=== PATIENT | female | born 1965 | race Caucasian/White ===

== ENCOUNTER 2020-05-14 08:05 | Outpatient (REF) | payer OTHER, SELFPAY | END 2020-05-14 08:06 | disposition home or self-care (01) | LOC: HO.LAB 08:05 | PROVIDERS: Visit Provider Internal Medicine | DX: Z20.828 Contact with and (suspected) exposure to other viral communicable diseases (principal) | CPT/HCPCS: 87635 ==

== ENCOUNTER 2020-05-18 15:02 | Outpatient (REF) | payer OTHER, SELFPAY | END 2020-05-18 15:03 | disposition home or self-care (01) | LOC: HO.LAB 15:02 | PROVIDERS: PCP Internal Medicine; Visit Provider Internal Medicine | DX: Z20.828 Contact with and (suspected) exposure to other viral communicable diseases (principal) | CPT/HCPCS: 87635 ==

== ENCOUNTER 2020-06-15 10:23 | Outpatient (REF) | payer OTHER, SELFPAY ==
--- NOTE | 2020-06-15 10:30 | MM_ITS ---
EXAMINATION: MM SCREENING DIGITAL BREAST TOMOSYNTHESIS, BILATERAL CLINICAL INFORMATION: Screening. Asymptomatic. The lifetime risk of breast cancer based on the Tyrer-Cuzick Model is 7%. COMPARISON: Mammography: 06/10/2019, 04/24/2018 TECHNIQUE: Digital breast tomosynthesis is performed in both the craniocaudal and mediolateral oblique views along with computer-aided detection (CAD). Synthesized 2D images are generated from the tomosynthesis. FINDINGS: The breasts are heterogeneously dense, which may obscure small masses (ACR BI-RADS breast composition Category c). There are no significant masses, abnormal calcifications, or other abnormalities. There is biopsy clip marker overlying stable nodule posterior medial left breast. No significant changes. MM/MM tomosynthesis screening BI IMPRESSION: No mammographic evidence of malignancy. ASSESSMENT: BI-RADS 2: Benign RECOMMENDATION: Routine annual mammography screening. This patient's information was entered into a reminder system with a target due date for their next mammogram.
== END 2020-06-15 10:24 | disposition home or self-care (01) ==
LOC: HO.MAMMO 10:23
PROVIDERS: PCP Internal Medicine; Visit Provider Internal Medicine
DX: Z12.31 Encounter for screening mammogram for malignant neoplasm of breast (principal)
CPT/HCPCS: 77063; 77067

== ENCOUNTER 2020-09-09 07:42 | Outpatient (REF) | payer OTHER, SELFPAY ==
[2020-09-09 08:27] LABS: Estimated Average Glucose 103 mg/dL; Hemoglobin A1c % 5.2 %
[2020-09-09 08:47] LABS: Alanine Aminotransferase 19 U/L (0-31); Albumin Level 3.9 g/dL (3.5-5.0); Alkaline Phosphatase 33 U/L (39-117); Anion Gap 12 (12-20); Aspartate Amino Transferase 22 U/L (5-31); Bilirubin Total 0.6 mg/dL (0.0-1.0); Blood Urea Nitrogen 15 mg/dL (9-16); Calcium 8.9 mg/dL (8.4-10.2); Carbon Dioxide 25 mmol/L (22-29); Chloride 109 mmol/L (96-108); Estimated Glomerular Filt Rate > 60; Glucose Random 93 mg/dL (60-115); Potassium 4.7 mmol/L (3.3-5.1); Sodium 141 mmol/L (135-145); Total Protein 7.1 g/dL (6.5-8.0)
== END 2020-09-09 07:43 | disposition home or self-care (01) ==
LOC: HO.LAB 07:42
PROVIDERS: PCP Internal Medicine; Visit Provider Internal Medicine
DX: R63.1 Polydipsia (principal)
CPT/HCPCS: 36415; 80053; 83036

== ENCOUNTER 2021-03-20 12:10 | Emergency (ER) | payer OTHER, SELFPAY ==
[2021-03-20 13:18] VITALS: BP 173/100; PULSE 86; RESP 18; TEMP 36.6; O2SAT 98; BMI 32.2
--- NOTE | 2021-03-20 14:56 | ED_ITS ---
HPI - General Adult General Chief complaint: General Medical Stated complaint: hbp Time Seen by Provider: 03/20/21 14:56 Source: patient Mode of arrival: ambulatory Limitations: no limitations History of Present Illness MD complaint: HTN, feels unwell Onset (ago): day(s) (last few days) Severity: mild Quality: aching Relieving factors: none Exacerbating factors: none Associated symptoms: malaise and other (doesn't feel well her pressure has been up to 170s at home, took herself off her amlodipine just started it 6 days ago 5mg, just doesn't feel well) Treatments prior to arrival: none Related Data Previous Rx's Medication Instructions Recorded amlodipine 5 mg tablet 5 mg PO DAILY #90 tab 09/06/20 amlodipine 10 mg tablet 10 mg PO DAILY #30 tab 03/20/21 Allergies Allergy/AdvReac Type Severity Reaction Status Date / Time No Known Allergies Allergy Verified 03/15/21 15:25 [No Known Allergies*] Review of Systems Review of Systems: Constitutional : No Weight loss, No Fever, No Chills, pos Fatigue, No Malaise ENT/Mouth : No sore throat, No Rhinorrhea Eyes: No Eye Pain, No Swelling, No Redness Cardiovascular : No Chest Pain, No SOB, No Dyspnea on Exertion, No Orthopnea, No Edema, No Palpitations Respiratory : No Cough, No Sputum, No Wheezing Gastrointestinal : pos Nausea, No Vomiting, No Diarrhea, No Constipation, No abdominal Pain, No Hematochezia, No Melena Genitourinary : No Dysuria, No Urinary Frequency, No Hematuria, Musculoskeletal : No joint pain, No Myalgias, No Joint Swelling Skin : No Skin Lesions, No rash Neuro : No Weakness, No Numbness, pos Dizziness, pos Headache Psych : No Anxiety/Panic, No Depression Heme/Lymph: No Bruising, No Bleeding,No Lymphadenopathy Endocrine : No Polyuria, No Polydipsia All other systems reviewed and are negative PMFSH Past Medical History Attestation statement: The following information was validated with the patient. Medical History Anxiety and depression Fibroadenoma of breast GERD (gastroesophageal reflux disease) Hypertension Medial meniscus tear Obesity (BMI 30-39.9) Scoliosis Vitamin D deficiency Surgical History History of cholecystectomy History of left knee surgery History of removal of cyst Family History Family History (Updated 03/15/21 @ 15:37 by Sweta Lopez MD) Father Myocardial infarction Past heart attack Mother Hypertension Glioma Maternal Uncle Stomach cancer Sister No problems noted. Brother No problems noted. Brother No problems noted. Daughter No problems noted. Daughter No problems noted. Daughter No problems noted. Social History Social History Housing: House Alcohol intake: never Patient Tobacco Use Status: Never used Tobacco Advance Directives: No Advance Directives Information Provided: No service: No Current occupational status: unemployed Physical Exam Vital Signs: Vital Signs: Last Vital Signs Temp 97.9 F 03/20/21 13:18 Pulse 79 03/20/21 15:25 Resp 18 03/20/21 15:09 BP 167/80 H 03/20/21 15:25 Pulse Ox 99 03/20/21 15:09 Body Mass Index 32.2 Appearance: Alert. Oriented X3. No acute distress. Eyes: Pupils equal, round and reactive to light. ENT: Pharynx normal. Neck: Normal inspection. Neck supple. CVS: Normal heart rate and rhythm. Pulses normal. Respiratory: No respiratory distress. Breath sounds normal. Abdomen: Soft and non-tender. Skin: Skin warm and dry. Normal skin color. Normal skin turgor. Extremities: No lower extremity edema. No calf ttp Neuro: Oriented X 3. No motor deficit. No sensory deficit. Course Course Course Narrative: trop flat stable for DC better BP control Medical Decision Making [facility] Narrative Medical decision making narrative: 55 yo female with hx of anxiety, depression, GERD, HTN only on amlodipine 5mg. Took herself off of medications then noted she wasn't feeling well so she just restarted her 5mg amlodipine 6 days ago but notes her BP is still high and she still doesn't feel great. At this time labs, increase of amlodipine, EKG, dispo per results and findings. Lab Data Result diagrams: 03/20/21 15:32 03/20/21 15:32 Labs: Lab Results 03/20/21 03/20/21 03/20/21 Range/Units 15:32 15:32 15:32 WBC 4.6 L (4.8-10.8) X10*3/uL RBC 4.57 (4.20-5.50) X10*6/uL Hgb 12.8 (12.0-16.0) g/dl Hct 39.3 (37-47) % MCV 86.0 (80-98) fL MCH 28.0 (27.0-33.0) pg MCHC 32.6 (31.0-35.0) g/dl RDW 13.1 (11.0-16.0) % Plt Count 284 (160-400) X10*3/uL MPV 9.2 L (9.4-12.3) fL Immature Gran % (Auto) 0.2 (0.0-0.4) % Neut % (Auto) 58.2 (45-73) % Lymph % (Auto) 29.6 (20-40) % [place] % (Auto) 10.0 (2-11) % Eos % (Auto) 1.1 (0-4) % Baso % (Auto) 0.9 (0-2) % Lymph # (Auto) 1.4 (1.2-4.9) X10*3/uL [place] # (Auto) 0.5 (0.1-1.2) X10*3/uL Eos # (Auto) 0.1 (0.0-0.4) X10*3/uL Baso # (Auto) 0.0 (0.0-0.2) X10*3/uL Abs Immat Gran (auto) 0.01 (0.00-0.03) X10*3/uL Absolute Neuts (auto) 2.7 (2.0-8.3) X10*3/uL Absolute Nucleated RBC 0.000 (0.0-0.012) X10*3/uL Nucleated RBC % (auto) 0.0 (0.0-0.2) /100WBC Sodium 142 (135-145) mmol/L Potassium 4.4 (3.3-5.1) mmol/L Chloride 108 (96-108) mmol/L Carbon Dioxide 24 (22-29) mmol/L Anion Gap 14 (12-20) BUN 20 H (9-16) mg/dL Creatinine 0.78 (0.5-1.4) mg/dL Estim Creat Clear Calc 73.6 Estimated GFR > 60 Random Glucose 99 (60-115) mg/dL Calcium 9.2 (8.4-10.2) mg/dL Magnesium 2.3 (1.6-2.6) mg/dL Total Bilirubin 0.4 (0.0-1.0) mg/dL Direct Bilirubin 0.2 (0.0-0.5) mg/dL AST 20 (5-31) U/L ALT 20 (0-31) U/L Alkaline Phosphatase 34 L (39-117) U/L Troponin I High Sens (<3.5-17.0) ng/L Total Protein 7.3 (6.5-8.0) g/dL Albumin 4.2 (3.5-5.0) g/dL COVID-19 ([facility]) Negative (Negative) COVID-19 Clin Com See Note 03/20/21 Range/Units 15:32 WBC (4.8-10.8) X10*3/uL RBC (4.20-5.50) X10*6/uL Hgb (12.0-16.0) g/dl Hct (37-47) % MCV (80-98) fL MCH (27.0-33.0) pg MCHC (31.0-35.0) g/dl RDW (11.0-16.0) % Plt Count (160-400) X10*3/uL MPV (9.4-12.3) fL Immature Gran % (Auto) (0.0-0.4) % Neut % (Auto) (45-73) % Lymph % (Auto) (20-40) % [place] % (Auto) (2-11) % Eos % (Auto) (0-4) % Baso % (Auto) (0-2) % Lymph # (Auto) (1.2-4.9) X10*3/uL [place] # (Auto) (0.1-1.2) X10*3/uL Eos # (Auto) (0.0-0.4) X10*3/uL Baso # (Auto) (0.0-0.2) X10*3/uL Abs Immat Gran (auto) (0.00-0.03) X10*3/uL Absolute Neuts (auto) (2.0-8.3) X10*3/uL Absolute Nucleated RBC (0.0-0.012) X10*3/uL Nucleated RBC % (auto) (0.0-0.2) /100WBC Sodium (135-145) mmol/L Potassium (3.3-5.1) mmol/L Chloride (96-108) mmol/L Carbon Dioxide (22-29) mmol/L Anion Gap (12-20) BUN (9-16) mg/dL Creatinine (0.5-1.4) mg/dL Estim Creat Clear Calc Estimated GFR Random Glucose (60-115) mg/dL Calcium (8.4-10.2) mg/dL Magnesium (1.6-2.6) mg/dL Total Bilirubin (0.0-1.0) mg/dL Direct Bilirubin (0.0-0.5) mg/dL AST (5-31) U/L ALT (0-31) U/L Alkaline Phosphatase (39-117) U/L Troponin I High Sens 4.0 (<3.5-17.0) ng/L Total Protein (6.5-8.0) g/dL Albumin (3.5-5.0) g/dL COVID-19 ([facility]) (Negative) COVID-19 Clin Com ECG Data Attestation: I personally reviewed and interpreted this ECG as follows: Interpretation: Rate: 77 Rhythm: NSR [place]: normal Normal P waves. Normal NANCIE. Normal QRS complex. ST T wave : normal nonspecific no GÓMEZ qTC: normal prior studies: no acute ischemia The study has been interpreted contemporaneously by me. . Discharge Plan Discharge Clinical Impression: Hypertension Patient Disposition: Home, Self-Care Instructions: Chronic Hypertension (ED) Additional Instructions: return to ED for any worsening symptoms or concerns Prescriptions: New amlodipine 10 mg tablet 10 mg PO DAILY Qty: 30 RF: 0 No Action amlodipine 5 mg tablet 5 mg PO DAILY Qty: 90 RF: 2 Referrals: Po,Sweta Pinedo MD [Primary Care Provider] - 2 days (if not better) Stand Alone Forms: Work/School Release
--- NOTE | 2021-03-20 15:08 | ECG_ITS ---
Test Reason : WEAKNESS Blood Pressure : / mmHG Vent. Rate : 077 BPM Atrial Rate : 077 BPM P-R Int : 136 ms QRS Dur : 080 ms QT Int : 402 ms P-R-T Axes : 059 006 028 degrees QTc Int : 454 ms Normal sinus rhythm Possible Left atrial enlargement Borderline ECG When compared with ECG of 14-JAN-2015 21:12, No significant change was found Referred By: Kylie Stoll Electronically Signed By:ONUR CHURCH
[2021-03-20 15:09] VITALS: BP 174/95; PULSE 73; RESP 18; O2SAT 99
[2021-03-20 15:25] VITALS: BP 167/80; PULSE 79
[2021-03-20] MEDS: amLODIPine Besylate 5 MG TABLET PO (15:25)
[2021-03-20 15:38] LABS: MANUAL DIFF FLAG NO
[2021-03-20 15:44] LABS: Basophils Percent Auto 0.9 % (0-2); Eosinophils Absolute Auto 0.1 X10*3/uL (0.0-0.4); Eosinophils Percent Auto 1.1 % (0-4); Hematocrit 39.3 % (37-47); Hemoglobin 12.8 g/dl (12.0-16.0); Imm Gran Abs Auto 0.01 X10*3/uL (0.00-0.03); Imm Gran Pct Auto 0.2 % (0.0-0.4); Lymphocytes Absolute Auto 1.4 X10*3/uL (1.2-4.9); Lymphocytes Percent Auto 29.6 % (20-40); Mean Corpuscular HGB Conc 32.6 g/dl (31.0-35.0); Mean Platelet Volume 9.2 fL (9.4-12.3); Monocytes Absolute Auto 0.5 X10*3/uL (0.1-1.2); Neutrophils Absolute Auto 2.7 X10*3/uL (2.0-8.3); Neutrophils Percent Auto 58.2 % (45-73); Platelet Count 284 X10*3/uL (160-400); Red Blood Count 4.57 X10*6/uL (4.20-5.50); Red Cell Distribution Width 13.1 % (11.0-16.0); White Blood Count 4.6 X10*3/uL (4.8-10.8)
[2021-03-20 15:53] LABS: COVID-19 Test Negative (Negative); IDNOW Serial# 9DD0AD1C
[2021-03-20 16:00] VITALS: BP 144/83; PULSE 80; RESP 18; O2SAT 99
[2021-03-20 16:12] LABS: Alanine Aminotransferase 20 U/L (0-31); Albumin Level 4.2 g/dL (3.5-5.0); Alkaline Phosphatase 34 U/L (39-117); Anion Gap 14 (12-20); Aspartate Amino Transferase 20 U/L (5-31); Bilirubin Direct 0.2 mg/dL (0.0-0.5); Bilirubin Total 0.4 mg/dL (0.0-1.0); Blood Urea Nitrogen 20 mg/dL (9-16); Calcium 9.2 mg/dL (8.4-10.2); Carbon Dioxide 24 mmol/L (22-29); Chloride 108 mmol/L (96-108); Creatinine Clr Calc Pharmacy 73.6; Estimated Glomerular Filt Rate > 60; Glucose Random 99 mg/dL (60-115); Magnesium 2.3 mg/dL (1.6-2.6); Potassium 4.4 mmol/L (3.3-5.1); Sodium 142 mmol/L (135-145); Total Protein 7.3 g/dL (6.5-8.0)
== END 2021-03-20 16:33 | disposition home or self-care (01) ==
PROVIDERS: Emergency Provider Emergency Medicine; PCP Internal Medicine
DX: I10 Essential (primary) hypertension (principal); Z79.899 Other long term (current) drug therapy; Z20.822 Contact with and (suspected) exposure to COVID-19
CPT/HCPCS: 36415; 80048; 80076; 83735; 84443; 84484; 85025; 87635; 93005; 99284

== ENCOUNTER 2021-08-09 12:48 | Outpatient (REF) | payer OTHER, SELFPAY ==
--- NOTE | ~2021-08-09 | MM_ITS ---
EXAMINATION: MM SCREENING DIGITAL BREAST TOMOSYNTHESIS, BILATERAL CLINICAL INFORMATION: Screening. Asymptomatic. Remote benign left breast biopsy 2006. The lifetime risk of breast cancer based on the Tyrer-Cuzick Model is 6%. COMPARISON: Mammography: 06/15/2020, 06/10/2019, 04/26/2018 TECHNIQUE: Digital breast tomosynthesis is performed in both the craniocaudal and mediolateral oblique views along with computer-aided detection (CAD). Synthesized 2D images are generated from the tomosynthesis. FINDINGS: The breasts are heterogeneously dense, which may obscure small masses (ACR BI-RADS breast composition Category c). Parenchymal pattern is similar to prior studies. There is no developing density or architectural abnormality. There is no significant mass or abnormal calcifications. Biopsy clip marker again seen overlying nodule posterior 8:30 o'clock left breast. There are associated coarse calcifications suggesting degenerating fibroadenoma. The axilla and skin contours are unremarkable. No significant changes. MM/MM tomosynthesis screening BI IMPRESSION: No mammographic evidence of malignancy. ASSESSMENT: BI-RADS 2: Benign RECOMMENDATION: Routine annual mammography screening. This patient's information was entered into a reminder system with a target due date for their next mammogram.
== END 2021-08-09 12:49 | disposition home or self-care (01) ==
LOC: HO.MAMMO 12:48
PROVIDERS: Visit Provider Internal Medicine
DX: Z12.31 Encounter for screening mammogram for malignant neoplasm of breast (principal)
CPT/HCPCS: 77063; 77067

== ENCOUNTER 2022-03-24 07:18 | Outpatient (REF) | payer OTHER, SELFPAY ==
[2022-03-24 07:29] LABS: MANUAL DIFF FLAG NO
[2022-03-24 08:20] LABS: Basophils Percent Auto 0.9 % (0-2); Eosinophils Absolute Auto 0.2 X10*3/uL (0.0-0.4); Eosinophils Percent Auto 4.1 % (0-4); Hematocrit 39.2 % (37.0-47.0); Hemoglobin 12.6 g/dl (12.0-16.0); Lymphocytes Absolute Auto 1.5 X10*3/uL (1.2-4.9); Mean Corpuscular HGB Conc 32.1 g/dl (31.0-35.0); Mean Corpuscular Hemoglobin 27.5 pg (27.0-33.0); Mean Corpuscular Volume 85.6 fL (80.0-98.0); Mean Platelet Volume 9.3 fL (9.4-12.3); Monocytes Absolute Auto 0.5 X10*3/uL (0.1-1.2); Neutrophils Absolute Auto 2.1 x10*3/uL (2.0-8.3); Platelet Count 309 X10*3/uL (160-400); Red Blood Count 4.58 X10*6/uL (4.20-5.50); Red Cell Distribution Width 13.3 % (11.0-16.0); White Blood Count 4.4 X10*3/uL (4.8-10.8)
[2022-03-24 08:52] LABS: Alanine Aminotransferase 19 U/L (0-31); Albumin Level 3.9 g/dL (3.5-5.0); Alkaline Phosphatase 36 U/L (39-117); Anion Gap 13 (12-20); Aspartate Amino Transferase 16 U/L (5-31); Bilirubin Total 0.6 mg/dL (0.0-1.0); Blood Urea Nitrogen 18 mg/dL (9-16); Calcium 8.9 mg/dL (8.4-10.2); Carbon Dioxide 26 mmol/L (22-29); Chloride 107 mmol/L (96-108); Cholesterol 205 mg/dL; Estimated Glomerular Filt Rate > 60; Glucose Random 99 mg/dL (60-115); HDL Cholesterol 80 mg/dL; LDL Cholesterol Calculated 117 mg/dl; Potassium 4.6 mmol/L (3.3-5.1); Sodium 141 mmol/L (135-145); Total Protein 6.8 g/dL (6.5-8.0); Triglycerides 43 mg/dL
[2022-03-24 09:14] LABS: Free T4 (Free Thyroxine) 0.99 ng/dL (0.71-1.85); Thyroid Stimulating Hormone 2.05 uIU/mL (0.32-4.0); Vitamin D 25-OH Total 30.4 ng/mL (>30)
[2022-03-24 09:46] LABS: Folate 13.9 ng/mL (> or = 4.0); Vitamin B12 243 pg/mL (200-900)
== END 2022-03-24 07:19 | disposition home or self-care (01) ==
LOC: HO.LAB 07:18
PROVIDERS: PCP Internal Medicine; Visit Provider Internal Medicine
DX: E78.00 Pure hypercholesterolemia, unspecified (principal); I10 Essential (primary) hypertension; K21.9 Gastro-esophageal reflux disease without esophagitis
CPT/HCPCS: 36415; 80053; 80061; 82306; 82607; 82746; 84439; 84443; 85025

== ENCOUNTER 2022-04-17 14:37 | Outpatient (REF) | payer OTHER, SELFPAY ==
[2022-04-17 15:06] LABS: COVID-19 Test Negative (Negative); IDNOW Serial# 55D5AD1C
== END 2022-04-17 14:38 | disposition home or self-care (01) ==
LOC: HO.LAB 14:37
PROVIDERS: Visit Provider Internal Medicine
DX: Z20.822 Contact with and (suspected) exposure to COVID-19 (principal)
CPT/HCPCS: 87635; C9803

== ENCOUNTER 2022-08-11 12:48 | Outpatient (REF) | payer OTHER, SELFPAY ==
--- NOTE | ~2022-08-11 | MM_ITS ---
EXAMINATION: MM SCREENING DIGITAL BREAST TOMOSYNTHESIS, BILATERAL CLINICAL INFORMATION: Screening. Asymptomatic. The lifetime risk of breast cancer based on the Tyrer-Cuzick Model is 6%. COMPARISON: Mammography: 08/09/2021, 06/15/2020, 06/10/2019 TECHNIQUE: Digital breast tomosynthesis is performed in both the craniocaudal and mediolateral oblique views along with computer-aided detection (CAD). Synthesized 2D images are generated from the tomosynthesis. FINDINGS: The breasts are heterogeneously dense, which may obscure small masses (ACR BI-RADS breast composition Category c). There are no significant masses, abnormal calcifications, or other abnormalities. There is no significant change from prior studies. No developing density or architectural abnormality. Biopsy clip marker posterior medial left breast overlies a stable nodule with benign coarse calcifications. The axilla and skin contours are unremarkable. No significant changes. MM/MM tomosynthesis screening BI IMPRESSION: No mammographic evidence of malignancy. ASSESSMENT: BI-RADS 2: Benign RECOMMENDATION: Routine annual mammography screening. This patient's information was entered into a reminder system with a target due date for their next mammogram.
== END 2022-08-11 12:49 | disposition home or self-care (01) ==
LOC: HO.MAMMO 12:48
PROVIDERS: PCP Internal Medicine; Visit Provider Internal Medicine
DX: Z12.31 Encounter for screening mammogram for malignant neoplasm of breast (principal)
CPT/HCPCS: 77063; 77067

== ENCOUNTER → 2022-10-16 12:59 | Outpatient (REF) | payer OTHER, SELFPAY | LOC: HO.SL 12:59 | PROVIDERS: PCP Internal Medicine; Visit Provider Internal Medicine | DX: G47.10 Hypersomnia, unspecified (principal); R06.83 Snoring | CPT/HCPCS: 95806 ==

== ENCOUNTER 2023-03-27 13:28 | Outpatient (AMB) | payer OTHER, SELFPAY ==
[2023-03-27 13:34] VITALS: BP 130/76; PULSE 86; O2SAT 99
--- NOTE | 2023-03-27 13:34 | A.OFFPC_ITS ---
Vital Signs 03/27/23 13:34 Height 5 ft BP 130/76 Blood Pressure Location Lt brachial Position Sitting Pulse 86 Pulse Source Pulse Oximeter Pulse Oximetry (%) 99 Oxygen Delivery Method Room Air Intake Visit Reasons: PHYSICAL Allergies No Known Allergies [No Known Allergies*] Allergy (Verified 03/27/23 13:35) Medication List - Last Reconciled 03/27/23 by Sweta Lopez MD amlodipine 10 mg PO DAILY 90 days cyanocobalamin (vitamin B-12) 1,000 mcg PO DAILY ibuprofen 200 mg PO Q6H PRN Tobacco use date assessed: 09/22/22 Dental Screening Dental Screen Date: 03/27/23 Did you have a dental visit in the last 12 months?: Yes Did you have a dental problem in the last 6 months where you did not have access to dental care?: No Was dental information given to patient?: Patient has dentist HPI PHYSICAL HPI Details 57-year-old obese female with hypertension GERD vitamin B12 deficiency last seen in August 2022 and was advised to get sleep study for hypersomnia. Patient is here for physical exam. Mammogram is up-to-date colonoscopy do but patient has declined for couple of years.. Sleep study done September 2022 revealed negative sleep apnea. biometric screening quesytionaire filled. Patient is concerned about difficulty in concentration and was offered referral to neuropsychiatry for evaluation but would like to hold off. Colonoscopy still refused [facility] Medical History Fibroadenoma of breast GERD (gastroesophageal reflux disease) Hypertension Medial meniscus tear Obesity (BMI 30-39.9) Scoliosis Vitamin D deficiency Surgical History History of cholecystectomy History of left knee surgery History of removal of cyst Family History Father Myocardial infarction Past heart attack Mother Hypertension Glioma Maternal Uncle Stomach cancer Sister No problems noted. Brother No problems noted. Brother No problems noted. Daughter No problems noted. Daughter No problems noted. Daughter No problems noted. Social History Housing: House Alcohol intake: never Patient Tobacco Use Status: Never used Tobacco e-Cigarette/Vaping Use: Never Used Second Hand Smoke Exposure: No service: No Current occupational status: unemployed Cognitive needs: No Hearing needs: No Vision needs: Yes Questionnaire PHQ-9 Over the last 2 weeks, how often have you been bothered by any of the following problems? 1. Little interest or pleasure in doing things: several days 2. Feeling down, depressed, or hopeless: several days 3. Trouble falling or staying asleep, or sleeping too much: not at all 4. Feeling tired or having little energy: not at all 5. Poor appetite or overeating: not at all 6. Feeling bad about yourself - or that you are a failure or have let yourself or your family down: not at all 7. Trouble concentrating on things, such as reading the newspaper or watching television: not at all 8. Moving or speaking so slowly that other people could have noticed. Or the opposite - being so fidgety or restless that you have been moving around a lot more than usual: not at all 9. Thoughts that you would be better off or of hurting yourself in some way: not at all Total score: 2 Depression Screening Interpretation: Positive Source: Developed by Drs. Jareth Morgan, Jerrell Calabrese and colleagues, with an educational aj from [employer] Thrive Questionnaire Date Thrive assessed: 09/22/22 AUDIT C Alcohol Use Questionnaire (AUDIT-C) 1. How often do you have a drink containing alcohol?: Never 2. How many drinks containing alcohol do you have on a typical day when you are drinking?: 1 or 2 3. How often do you have six or more drinks on one occasion?: Never Total Score: 0 SAMEER-7 AMB Questionnaire SAMEER-7 Date SAMEER - 7 assessed: 09/22/22 Source: Developed by Drs. Jareth Morgan, Jerrell Calabrese and colleagues, with an educational aj from [employer] Review of Systems Const Denies poor appetite and Denies weakness Eyes Denies no additional complaints ENT Reports Normal hearing present, Denies dizziness, Denies nasal congestion, Denies tinnitus and Denies sore throat Card Denies chest pain, Denies syncope, Denies rapid heart rate and Denies dyspnea Resp Denies cough and Denies dyspnea GI Denies change in stool character, Reports constipation, Denies diarrhea, Denies nausea and Denies vomiting Denies urinary frequency, Denies difficulty voiding and Denies dysuria Neuro Reports Normal hearing present, Denies confusion, Denies dizziness, Denies syncope and Denies weakness Psych Denies confusion Physical exam (Primary Care) Vital Signs: Last Vital Signs Pulse 86 03/27/23 13:34 BP 130/76 03/27/23 13:34 Pulse Ox 99 03/27/23 13:34 Oxygen Delivery Method Room Air 03/27/23 13:34 Tobacco/Smoking Status: Tobacco use Status Tobacco use date assessed 09/22/22 03/27/23 13:41 Patient Tobacco Use Status Never used Tobacco 03/27/23 13:41 e-Cigarette/Vaping Use Never Used 03/27/23 13:41 PHQ-9: PHQ-9 Score PHQ-9: Total score 2 03/27/23 13:41 Depression Screening Interpretation: Positive Thrive Assessment: Date of Thrive Assessment Date Thrive assessed 09/22/22 03/27/23 13:41 Const General: No confusion Orientation/consciousness: No confusion HENMT Head: Yes normocephalic Ears: external ears normal and TM's normal bilaterally Face and sinus: Yes normal facial exam Mouth: moist mucous membranes Throat: Yes tonsils normal Eyes Conjunctivae: conjunctivae normal Pupils: Equal, round and reactive pupils present and Pupil accommodation reflex normal Direct Ophthalmoscopy: normal light reflex Neck Neck: No lymphadenopathy Thyroid: Thyroid normal Chest Chest palpation & inspection: normal inspection of the chest Resp Effort & Inspection: normal respiratory effort and no audible wheezes Auscultation: clear to auscultation bilaterally, no crackles, no wheezes and lung sounds not diminished Cardio Rate: regular rate Rhythm: regular rhythm Peripheral pulses: radial pulses present and dorsalis pedis present GI Palpation (GI): no masses Auscultation: normal bowel sounds and normoactive bowel sounds Rectal Exam - Female: deferred Skin General skin exam: no rashes or lesions noted Rashes: no rashes Neuro General: No confusion Cranial nerves: Yes Equal, round and reactive pupils present and Yes Normal hearing present Cognition (Neuro): normal cognition Gait exam (Neuro): Normal gait present Motor exam (neuro): 5/5 motor strength present throughout Deep tendon reflexes (DTR's): Right brachioradialis reflex intensity grade: 2+, Left brachioradialis reflex intensity grade: 2+, Right patellar reflex intensity grade: 2+ and Left patellar reflex intensity grade: 2+ Extrem General: No edema Assessment and Plan Assessment & Plan (1) Annual physical exam: Code(s): Z00.00 - Encounter for general adult medical examination without abnormal findings (2) Hypertension: Code(s): I10 - Essential (primary) hypertension Qualifiers: Hypertension type: primary hypertension Qualified Code(s): I10 - Essential (primary) hypertension Plan: Continue with blood pressure medication. Decrease salt intake and exercise patient is on amlodipine 10 mg once a day (3) GERD (gastroesophageal reflux disease): Code(s): K21.9 - Gastro-esophageal reflux disease without esophagitis Qualifiers: Esophagitis presence: without esophagitis Qualified Code(s): K21.9 - Gastro-esophageal reflux disease without esophagitis Plan: Avoid the foods that causes that usually spicy foods, tomato products, juices, coffee, soda and foods that your sensitive to. After eating do not lie down, allow 3-4 hours before in lie down. And keep the head of bed above 30 degrees to avoid the acid from going up. (4) Obesity (BMI 30-39.9): Code(s): E66.9 - Obesity, unspecified Plan: Diet and exercise (5) Generalized anxiety disorder: Code(s): F41.1 - Generalized anxiety disorder Plan: Stable Orders: Orders Vitamin B12 and Folate Today I10 - Essential (primary) hypertension Comprehensive Met. Panel Today I10 - Essential (primary) hypertension Lipid Panel Today E78.00 - Pure hypercholesterolemia, unspecified, I10 - Essential (primary) hypertension Free T4 (Free Thyroxine) Today I10 - Essential (primary) hypertension Thyroid Stimulating Hormone Today I10 - Essential (primary) hypertension Vitamin D 25-OH Total Today I10 - Essential (primary) hypertension Complete Blood Count Auto Diff Today I10 - Essential (primary) hypertension Coding Level of Care Code Est Pt Prev Care 40-64y(70075) Diagnoses Annual physical exam Z00.00 Hypertension I10 Hypertension type: primary hypertension GERD (gastroesophageal reflux disease) K21.9 Esophagitis presence: without esophagitis Obesity (BMI 30-39.9) E66.9 Generalized anxiety disorder F41.1
== END 2023-03-27 14:09 | disposition home or self-care (01) ==
PROVIDERS: PCP Internal Medicine; Visit Provider Internal Medicine
DX: Z00.00 Encounter for general adult medical examination without abnormal findings (principal); I10 Essential (primary) hypertension; K21.9 Gastro-esophageal reflux disease without esophagitis; F41.1 Generalized anxiety disorder
CPT/HCPCS: 99396

== ENCOUNTER 2023-04-04 08:11 | Outpatient (REF) | payer OTHER, SELFPAY ==
[2023-04-04 08:35] LABS: MANUAL DIFF FLAG NO
[2023-04-04 08:56] LABS: Basophils Percent Auto 0.8 % (0-2); Eosinophils Absolute Auto 0.2 X10*3/uL (0.0-0.4); Eosinophils Percent Auto 3.6 % (0-4); Hemoglobin 12.8 g/dl (12.0-16.0); Imm Gran Abs Auto 0.01 X10*3/uL (0.00-0.03); Imm Gran Pct Auto 0.2 % (0.0-0.4); Lymphocytes Absolute Auto 1.8 X10*3/uL (1.2-4.9); Mean Corpuscular HGB Conc 32.8 g/dl (31.0-35.0); Mean Corpuscular Hemoglobin 28.4 pg (27.0-33.0); Mean Corpuscular Volume 86.5 fL (80.0-98.0); Mean Platelet Volume 9.2 fL (9.4-12.3); Monocytes Absolute Auto 0.5 X10*3/uL (0.1-1.2); Monocytes Percent Auto 10.8 % (2-11); Neutrophils Absolute Auto 2.4 x10*3/uL (2.0-8.3); Neutrophils Percent Auto 48.6 % (45-73); Platelet Count 292 X10*3/uL (160-400); Red Blood Count 4.51 X10*6/uL (4.20-5.50); Red Cell Distribution Width 13.6 % (11.0-16.0)
[2023-04-04 09:44] LABS: Alanine Aminotransferase 14 U/L (0-31); Albumin Level 3.8 g/dL (3.5-5.0); Alkaline Phosphatase 35 U/L (39-117); Anion Gap 10 (12-20); Aspartate Amino Transferase 17 U/L (5-31); Bilirubin Total 0.6 mg/dL (0.0-1.0); Blood Urea Nitrogen 19 mg/dL (9-16); Calcium 9.4 mg/dL (8.4-10.2); Carbon Dioxide 28 mmol/L (22-29); Chloride 110 mmol/L (96-108); Cholesterol 193 mg/dL (<200); Estimated Glomerular Filt Rate > 60; Glucose Random 92 mg/dL (60-115); HDL Cholesterol 82 mg/dL (>40); LDL Cholesterol Calculated 103 mg/dL (<100); Potassium 4.7 mmol/L (3.3-5.1); Sodium 143 mmol/L (135-145); Total Protein 6.8 g/dL (6.5-8.0); Triglycerides 43 mg/dL (<150)
[2023-04-04 10:05] LABS: Folate 10.7 ng/mL (> or = 4.0); Vitamin B12 348 pg/mL (200-900)
[2023-04-04 10:10] LABS: Free T4 (Free Thyroxine) 0.89 ng/dL (0.71-1.85); Thyroid Stimulating Hormone 1.56 uIU/mL (0.32-4.0); Vitamin D 25-OH Total 34.2 ng/mL (>30)
== END 2023-04-04 08:12 | disposition home or self-care (01) ==
LOC: HO.LAB 08:11
PROVIDERS: PCP Internal Medicine; Visit Provider Internal Medicine
DX: E78.00 Pure hypercholesterolemia, unspecified (principal); I10 Essential (primary) hypertension; E55.9 Vitamin D deficiency, unspecified
CPT/HCPCS: 36415; 80053; 80061; 82306; 82607; 82746; 84439; 84443; 85025

== ENCOUNTER 2023-08-17 12:39 | Outpatient (REF) | payer OTHER, SELFPAY ==
--- NOTE | ~2023-08-17 | MM_ITS ---
EXAMINATION: MM SCREENING DIGITAL BREAST TOMOSYNTHESIS, BILATERAL CLINICAL INFORMATION: Screening. Asymptomatic. COMPARISON: Mammography: This study is compared with prior exams dating back to 2018. TECHNIQUE: Digital breast tomosynthesis is performed in both the craniocaudal and mediolateral oblique views along with computer-aided detection (CAD). Synthesized 2D images are generated from the tomosynthesis. FINDINGS: There are scattered areas of fibroglandular density (ACR BI-RADS breast composition Category b). There are no significant masses, abnormal calcifications, or other abnormalities. In the medial aspect of the left breast, there is a low density, oval, well-circumscribed mass containing few coarse calcifications and a biopsy tissue marker. This finding is players club representative of a previously biopsied, involuting fibroadenoma. This is a benign entity. MM/MM tomosynthesis screening BI IMPRESSION: No mammographic evidence of malignancy. ASSESSMENT: BI-RADS BI-RADS 2 - Benign Findings RECOMMENDATION: Routine annual mammography screening. 1 year F/U This examination should not preclude the clinical evaluation of a suspicious palpable abnormality. This patient's information was entered into a reminder system with a target due date for their next mammogram.
== END 2023-08-17 12:40 | disposition home or self-care (01) ==
LOC: HO.MAMMO 12:39
PROVIDERS: PCP Internal Medicine; Visit Provider Internal Medicine
DX: Z12.31 Encounter for screening mammogram for malignant neoplasm of breast (principal)
CPT/HCPCS: 77063; 77067

== ENCOUNTER → 2023-08-17 13:00 | Outpatient (BNV) | payer OTHER, SELFPAY | PROVIDERS: PCP Internal Medicine; Visit Provider Radiology Diagnostic Radiology | DX: Z12.31 Encounter for screening mammogram for malignant neoplasm of breast (principal) | CPT/HCPCS: 77063; 77067 ==

== ENCOUNTER 2024-04-03 13:26 | Outpatient (AMB) | payer OTHER, SELFPAY ==
[2024-04-03 13:28] VITALS: BP 118/72; PULSE 80; O2SAT 97; BMI 32.4
--- NOTE | 2024-04-03 13:28 | MHC.PC.OV ---
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 Accompanied by: Self / Same As Patient Allergies No Known Allergies [No Known Allergies*] Allergy (Verified 04/03/24 13:28) Medication List - Last Reconciled 04/03/24 by Sweta Lopez MD amlodipine 10 mg PO DAILY 90 days cyanocobalamin (vitamin B-12) 1,000 mcg PO DAILY escitalopram oxalate 5 mg PO DAILY ibuprofen 200 mg PO Q6H PRN Tobacco use date assessed: 04/03/24 Dental Screening Dental Screen Date: 04/03/24 Did you have a dental visit in the last 12 months?: Yes Did you have a dental problem in the last 6 months where you did not have access to dental care?: No Was dental information given to patient?: Patient has dentist HPI Annual Exam HPI Details 58-year-old obese female with hypertension GERD generalized anxiety disorder last seen 1 year ago patient is up-to-date with mammogram and do due for colonoscopy but patient declined. amadou and leaked water and so living in another place [facility] Medical History Fibroadenoma of breast GERD (gastroesophageal reflux disease) Hypertension Medial meniscus tear Obesity (BMI 30-39.9) Scoliosis Vitamin D deficiency Surgical History History of cholecystectomy History of left knee surgery History of removal of cyst Family History Father Myocardial infarction Past heart attack Mother Hypertension Glioma Maternal Uncle Stomach cancer Sister No problems noted. Brother No problems noted. Brother No problems noted. Daughter No problems noted. Daughter No problems noted. Daughter No problems noted. Social History Housing: House Alcohol intake: never Patient Tobacco Use Status: Never used Tobacco Tobacco use type: Cigarette e-Cigarette/Vaping Use: Never Used Second Hand Smoke Exposure: No service: No Current occupational status: unemployed Cognitive needs: No Hearing needs: No Vision needs: Yes Questionnaire PHQ-9 Over the last 2 weeks, how often have you been bothered by any of the following problems? 1. Little interest or pleasure in doing things: not at all 2. Feeling down, depressed, or hopeless: several days 3. Trouble falling or staying asleep, or sleeping too much: several days 4. Feeling tired or having little energy: not at all 5. Poor appetite or overeating: not at all 6. Feeling bad about yourself - or that you are a failure or have let yourself or your family down: not at all 7. Trouble concentrating on things, such as reading the newspaper or watching television: several days 8. Moving or speaking so slowly that other people could have noticed. Or the opposite - being so fidgety or restless that you have been moving around a lot more than usual: not at all 9. Thoughts that you would be better off or of hurting yourself in some way: not at all Total score: 3 Source: Developed by Drs. Jareth Morgan, Bhavna Guzmán, Jerrell Cornejo and colleagues, with an educational aj from [employer]. Thrive Questionnaire Date Thrive assessed: 03/27/24 I am a: Patient What is your living situation today?: I choose not to answer this question Within the past 12 months, did the food you bought not last and you didn't have the money to get more?: Never true Within the past 12 months, did you worry whether your food would run out before you got money to buy more?: Never true Do you have trouble paying for medicines?: No Do you have trouble getting transportation to medical appointments?: No Do you have trouble paying your heating and electricity bill?: No Do you have trouble taking care of your child, family member or friend?: No Do you have trouble with day-to-day activities such as bathing, preparing meals, shopping, managing finances, etc.?: No Are you currently unemployed and looking for a job?: Yes Are you interested in more education?: No Please select the resources that you would like help with: None Currently or been in a relationship where the following occur: No concerns reported THRIVE Score: 0 AUDIT C Alcohol Use Questionnaire (AUDIT-C) 1. How often do you have a drink containing alcohol?: Never Total Score: 0 SAMEER-7 AMB Questionnaire SAMEER-7 Date SAMEER - 7 assessed: 04/03/24 Feeling nervous, anxious, or on edge: 1 = Several days Not being able to stop or control worryin = Several days Worrying too much about different things: 1 = Several days Trouble relaxin = Not at all Being so restless that it is hard to sit still: 0 = Not at all Becoming easily annoyed or irritable: 0 = Not at all Feeling afraid as if something awful might happen: 0 = Not at all Total SAMEER-7 score (0-4 normal; 5-9 mild; 10-14 moderate; 15-21 severe): 3 Source: Developed by Drs. Jareth Morgan, Bhavna Guzmán, Jerrell Cornejo and colleagues, with an educational aj from [employer]. Review of Systems Const Denies poor appetite and Denies weakness Eyes Denies no additional complaints ENT Reports Normal hearing present, Denies dizziness, Denies nasal congestion, Denies tinnitus and Denies sore throat Card Denies chest pain, Denies syncope, Denies rapid heart rate and Denies dyspnea Resp Denies cough and Denies dyspnea GI Denies change in stool character, Reports constipation, Denies diarrhea, Denies nausea and Denies vomiting Denies urinary frequency, Denies difficulty voiding and Denies dysuria Neuro Reports Normal hearing present, Denies confusion, Denies dizziness, Denies syncope and Denies weakness Psych Denies confusion Physical exam (Primary Care) Vital Signs: Last Vital Signs Pulse 80 04/03/24 13:28 BP 118/72 04/03/24 13:28 Pulse Ox 97 04/03/24 13:28 Oxygen Delivery Method Room Air 04/03/24 13:28 BMI result Body Mass Index 32.4 Tobacco/Smoking Status: Tobacco use Status Tobacco use date assessed 04/03/24 04/03/24 13:31 Patient Tobacco Use Status Never used Tobacco 04/03/24 13:31 Tobacco use type Cigarette 04/03/24 13:31 e-Cigarette/Vaping Use Never Used 04/03/24 13:31 PHQ-9: PHQ-9 Score PHQ-9: Total score 3 04/03/24 13:33 Thrive Assessment: Date of Thrive Assessment Date Thrive assessed 03/27/24 04/03/24 13:31 Currently or been in a relationship where the following occur: No concerns reported Const General: No confusion Orientation/consciousness: No confusion HENMT Head: Yes normocephalic Ears: external ears normal and TM's normal bilaterally Face and sinus: Yes normal facial exam Mouth: moist mucous membranes Throat: Yes tonsils normal Eyes Conjunctivae: conjunctivae normal Pupils: Equal, round and reactive pupils present and Pupil accommodation reflex normal Direct Ophthalmoscopy: normal light reflex Neck Neck: No lymphadenopathy Thyroid: Thyroid normal Chest Chest palpation & inspection: normal inspection of the chest Resp Effort & Inspection: normal respiratory effort and no audible wheezes Auscultation: clear to auscultation bilaterally, no crackles, no wheezes and lung sounds not diminished Cardio Rate: regular rate Rhythm: regular rhythm Peripheral pulses: radial pulses present and dorsalis pedis present GI Palpation (GI): no masses Auscultation: normal bowel sounds and normoactive bowel sounds Rectal Exam - Female: deferred Skin General skin exam: no rashes or lesions noted Rashes: no rashes Neuro General: No confusion Cranial nerves: Yes Equal, round and reactive pupils present and Yes Normal hearing present Cognition (Neuro): normal cognition Gait exam (Neuro): Normal gait present Motor exam (neuro): 5/5 motor strength present throughout Deep tendon reflexes (DTR's): Right brachioradialis reflex intensity grade: 2+, Left brachioradialis reflex intensity grade: 2+, Right patellar reflex intensity grade: 2+ and Left patellar reflex intensity grade: 2+ Extrem General: No edema Assessment and Plan Assessment & Plan (1) Annual physical exam: Code(s): Z00.00 - Encounter for general adult medical examination without abnormal findings Plan: Patient is advised to eat healthy, keep well hydrated, keep active and have adequate sleep. (2) Hypertension: Code(s): I10 - Essential (primary) hypertension Qualifiers: Hypertension type: primary hypertension Qualified Code(s): I10 - Essential (primary) hypertension Plan: Continue with blood pressure medication. Decrease salt intake and exercise on amlodipine 10 mg once a day (3) Obesity (BMI 30-39.9): Code(s): E66.9 - Obesity, unspecified Plan: Diet and exercise (4) GERD (gastroesophageal reflux disease): Code(s): K21.9 - Gastro-esophageal reflux disease without esophagitis Qualifiers: Esophagitis presence: without esophagitis Qualified Code(s): K21.9 - Gastro-esophageal reflux disease without esophagitis Plan: Avoid the foods that causes that usually spicy foods, tomato products, juices, coffee, soda and foods that your sensitive to. After eating do not lie down, allow 3-4 hours before in lie down. And keep the head of bed above 30 degrees to avoid the acid from going up. (5) Generalized anxiety disorder: Comment: [employer] Q week Code(s): F41.1 - Generalized anxiety disorder Plan: Continue with present medication. (6) Constipation: Code(s): K59.00 - Constipation, unspecified (7) Colon cancer screening: Code(s): Z12.11 - Encounter for screening for malignant neoplasm of colon Orders: Orders Comprehensive Met. Panel Today I10 - Essential (primary) hypertension Lipid Panel Today E78.00 - Pure hypercholesterolemia, unspecified, I10 - Essential (primary) hypertension Thyroid Stimulating Hormone Today I10 - Essential (primary) hypertension Vitamin B12 and Folate Today I10 - Essential (primary) hypertension UA CC w/rflx Micro + Cult Today R30.0 - Dysuria, Z00.00 - Encounter for general adult medical examination without abnormal findings Complete Blood Count Auto Diff Today I10 - Essential (primary) hypertension Free T4 (Free Thyroxine) Today I10 - Essential (primary) hypertension Vitamin D 25-OH Total Today I10 - Essential (primary) hypertension Referrals Gastroenterology Referral Z12.11 - Encounter for screening for malignant neoplasm of colon Medications: New sennosides-docusate sodium 8.6-50 mg (Senna Plus) 2 tab-caps (2 x 8.6-50 mg) PO BEDTIME 90 days 180 caps 1RF K59.00 - Constipation, unspecified Coding Level of Care Code Est Pt Prev Care 40-64y(93297) Diagnoses Annual physical exam Z00.00 Essential hypertension I10 Hypertension type: primary hypertension Obesity (BMI 30-39.9) E66.9 Gastroesophageal reflux disease without esophagitis K21.9 Esophagitis presence: without esophagitis Generalized anxiety disorder F41.1 Constipation K59.00 Colon cancer screening Z12.11
== END 2024-04-03 14:17 | disposition home or self-care (01) ==
PROVIDERS: PCP Internal Medicine; Visit Provider Internal Medicine
DX: Z00.00 Encounter for general adult medical examination without abnormal findings (principal); I10 Essential (primary) hypertension; K21.9 Gastro-esophageal reflux disease without esophagitis; F41.1 Generalized anxiety disorder; K59.00 Constipation, unspecified
CPT/HCPCS: 99396

== ENCOUNTER 2024-04-04 07:57 | Outpatient (REF) | payer OTHER, SELFPAY ==
[2024-04-04 08:08] LABS: MANUAL DIFF FLAG NO
[2024-04-04 08:19] LABS: Basophils Percent Auto 0.9 % (0-2); Eosinophils Absolute Auto 0.2 X10*3/uL (0.0-0.4); Eosinophils Percent Auto 4.1 % (0-4); Hematocrit 39.4 % (37.0-47.0); Imm Gran Abs Auto 0.01 X10*3/uL (0.00-0.03); Imm Gran Pct Auto 0.2 % (0.0-0.4); Lymphocytes Absolute Auto 1.6 X10*3/uL (1.2-4.9); Lymphocytes Percent Auto 35.4 % (20-40); Mean Corpuscular Hemoglobin 28.4 pg (27.0-33.0); Mean Corpuscular Volume 86.2 fL (80.0-98.0); Mean Platelet Volume 9.1 fL (9.4-12.3); Monocytes Absolute Auto 0.5 X10*3/uL (0.1-1.2); Monocytes Percent Auto 10.7 % (2-11); Neutrophils Absolute Auto 2.1 x10*3/uL (2.0-8.3); Neutrophils Percent Auto 48.7 % (45-73); Platelet Count 299 X10*3/uL (160-400); Red Blood Count 4.57 X10*6/uL (4.20-5.50); Red Cell Distribution Width 13.3 % (11.0-16.0); White Blood Count 4.4 X10*3/uL (4.8-10.8)
[2024-04-04 09:00] LABS: Alanine Aminotransferase 16 U/L (0-31); Albumin Level 3.9 g/dL (3.5-5.0); Alkaline Phosphatase 32 U/L (39-117); Anion Gap 12 (12-20); Aspartate Amino Transferase 17 U/L (5-31); Bilirubin Total 0.5 mg/dL (0.0-1.0); Blood Urea Nitrogen 12 mg/dL (9-16); Calcium 9.1 mg/dL (8.4-10.2); Carbon Dioxide 27 mmol/L (22-29); Chloride 107 mmol/L (96-108); Cholesterol 194 mg/dL (<200); Estimated Glomerular Filt Rate > 60; Glucose Random 98 mg/dL (60-115); HDL Cholesterol 74 mg/dL (>40); LDL Cholesterol Calculated 111 mg/dL (<100); Potassium 4.2 mmol/L (3.3-5.1); Sodium 142 mmol/L (135-145); Total Protein 6.9 g/dL (6.5-8.0); Triglycerides 47 mg/dL (<150)
[2024-04-04 09:02] LABS: Appearance Urine Clear; Color Urine Yellow; Glucose Urine UA Negative (Negative); Leukocyte Esterase Urine Trace (Negative); Nitrite Urine Negative (Negative); UMIC TRIGGER UACC YES; Urine Blood Negative (Negative); Urine Ketones Trace mg/dL (Negative); Urine Protein Trace mg/dL (Neg-Trace)
[2024-04-04 09:05] LABS: Bacteria Urine Trace (None Seen); Hyaline Casts Urine 0-2 /LPF (0-2); RBC Urine 0-2 /HPF (0-2); WBC Urine 0-5 /HPF (0-5)
[2024-04-04 09:19] LABS: Free T4 (Free Thyroxine) 0.89 ng/dL (0.71-1.85); Thyroid Stimulating Hormone 1.94 uIU/mL (0.32-4.0); Vitamin D 25-OH Total 34.7 ng/mL (>30)
[2024-04-04 09:34] LABS: Folate 12.1 ng/mL (> or = 4.0); Vitamin B12 334 pg/mL (200-900)
== END 2024-04-04 07:58 | disposition home or self-care (01) ==
LOC: HO.LAB 07:57
PROVIDERS: PCP Internal Medicine; Visit Provider Internal Medicine
DX: I10 Essential (primary) hypertension (principal); E78.00 Pure hypercholesterolemia, unspecified
CPT/HCPCS: 36415; 80053; 80061; 81001; 81003; 82306; 82607; 82746; 84439; 84443; 85025

== ENCOUNTER 2024-06-17 10:06 | Outpatient (AMB) | payer OTHER, SELFPAY ==
--- NOTE | 2024-06-17 11:08 | MHC.OFFWIV ---
Intake Vital Signs 06/17/24 11:09 Height 5 ft Weight 162 lb BMI 31.6 BP 120/80 Blood Pressure Location Rt brachial Position Sitting Pulse 68 Pulse Source Pulse Oximeter Pulse Oximetry (%) 98 Oxygen Delivery Method Room Air Intake Visit Reasons: EP RT knee pain Intake Note: Patient here for right knee pain that started about 1 week ago. Patient Tobacco Use Status: Never used Tobacco Allergies No Known Allergies [No Known Allergies*] Allergy (Verified 06/17/24 11:09) Do you need a note to return to daycare/school/sports/work: No HPI HPI Comments History of Present Illness Details This is a 58 year old female with a past medical history of hypertension and gastroesophageal reflux disease presenting for evaluation of right knee pain that started approximately 1 week ago. Patient states she was carrying items up the stairs and twisted her right knee while ascending the last step. Patient did not fall to the ground at that time. Patient is complaining of anterior and lateral right knee pain that is worse with ambulation. Patient has been taking ibuprofen and using ice compresses. [facility] Medical History (Updated 06/17/24 @ 11:56 by Radha Morrell PA-C) Colonoscopy refused Vitamin D deficiency Medial meniscus tear GERD (gastroesophageal reflux disease) Hypertension Obesity (BMI 30-39.9) Scoliosis Fibroadenoma of breast Surgical History History of left knee surgery History of cholecystectomy History of removal of cyst Family History Father Myocardial infarction Past heart attack Mother Hypertension Glioma Maternal Uncle Stomach cancer Sister No problems noted. Brother No problems noted. Brother No problems noted. Daughter No problems noted. Daughter No problems noted. Daughter No problems noted. Social History Housing: House Alcohol intake: never Patient Tobacco Use Status: Never used Tobacco Tobacco use type: Cigarette e-Cigarette/Vaping Use: Never Used Second Hand Smoke Exposure: No service: No Current occupational status: unemployed Cognitive needs: No Hearing needs: No Vision needs: Yes Review of Systems Const All systems reviewed & are unremarkable except as noted in HPI and below Reports as per HPI and Reports no additional complaints Card Reports no additional complaints Resp Reports no additional complaints GI Reports no additional complaints Musc Reports no additional complaints, Reports arthralgias (right knee), Denies limited range of motion, Denies muscle cramps and Denies muscle weakness Skin/Breast Reports system reviewed and no additional complaints, except as documented Psych Reports no additional complaints Physical Exam Vital Signs: Last Vital Signs Pulse 68 06/17/24 11:09 BP 120/80 06/17/24 11:09 Pulse Ox 98 06/17/24 11:09 Oxygen Delivery Method Room Air 06/17/24 11:09 BMI result Body Mass Index 31.6 Const General: cooperative, healthy appearing, comfortable and no acute distress Nutritional Appearance: average body habitus Orientation/consciousness: patient oriented x3 Limitations: no limitations Skin General skin exam: no rashes or lesions noted Wounds: no wounds Neuro General: patient oriented x3 Extrem Other: Ambulating independently, pain to palpation right lateral knee joint, no pain posterior fossa or right calf, no edema of RLE General: Yes normal to inspection Right lower extremity: normal to inspection, full ROM (passive ROM right knee intact; mild warmth anterior R. knee, no erythema) and no joint enlargement Assessment & Plan Assessment & Plan (1) Strain of right knee: Comment: Given her history coupled with her examination no further imaging is warranted at this time. Patient will be provided an Dez bandage for compression and stabilization. Code(s): S86.911A - Strain of unspecified muscle(s) and tendon(s) at lower leg level, right leg, initial encounter Qualifiers: Encounter type: initial encounter Qualified Code(s): S86.911A - Strain of unspecified muscle(s) and tendon(s) at lower leg level, right leg, initial encounter Plan: Dez bandage daily and a prescription for Naprosyn 500 mg b.i.d. will be provided. Patient will follow up with her primary care provider within 2 weeks if her symptoms have not improved. Medications: New naproxen (Naprosyn) 500 mg PO BID 20 tabs 0RF Coding Level of Care Code Est Pt Level 3 (57099) Diagnoses Strain of right knee, initial encounter S86.911A Encounter type: initial encounter Time Spent (min) 20
[2024-06-17 11:09] VITALS: BP 120/80; PULSE 68; O2SAT 98; BMI 31.6
== END 2024-06-17 12:31 | disposition home or self-care (01) ==
PROVIDERS: PCP Internal Medicine; Visit Provider Physician Assistant
DX: S86.911A Strain of unspecified muscle(s) and tendon(s) at lower leg level, right leg, initial encounter (principal)

== ENCOUNTER → 2024-06-17 10:06 | Outpatient (BNVA) | payer OTHER, SELFPAY | PROVIDERS: PCP Internal Medicine; Visit Provider Physician Assistant | DX: S86.911A Strain of unspecified muscle(s) and tendon(s) at lower leg level, right leg, initial encounter (principal) | CPT/HCPCS: 99212 ==

== ENCOUNTER 2024-07-04 10:08 | Outpatient (REF) | payer OTHER, SELFPAY ==
--- NOTE | ~2024-07-04 | XR_ITS ---
EXAMINATION: XR KNEE RIGHT CLINICAL INFORMATION: S86.911A - Strain of unspecified muscle(s) and tendon(s) at lower leg le... COMPARISON: None available. TECHNIQUE: Two views of the right knee. FINDINGS: AP and lateral views of the RIGHT knee. Mild narrowing of the medial compartment. Tiny tricompartmental osteophytes. Moderate joint effusion. XR/XR knee RT 2V IMPRESSION: Mild degenerative changes. Moderate joint effusion. Electronically signed by: Carmen Clinton MD 08/13/2024 01:36 PM EST
== END 2024-07-04 10:09 | disposition home or self-care (01) ==
LOC: HO.XRAY 10:08
PROVIDERS: PCP Internal Medicine; Visit Provider Internal Medicine
DX: S86.911A Strain of unspecified muscle(s) and tendon(s) at lower leg level, right leg, initial encounter (principal); E66.9 Obesity, unspecified; I10 Essential (primary) hypertension; K21.9 Gastro-esophageal reflux disease without esophagitis; F41.1 Generalized anxiety disorder; Z79.899 Other long term (current) drug therapy; X50.1XXA Overexertion from prolonged static or awkward postures, initial encounter; Y93.9 Activity, unspecified; Y92.9 Unspecified place or not applicable; Y99.9 Unspecified external cause status
CPT/HCPCS: 73560; 96127; 99212

== ENCOUNTER 2024-07-04 10:08 | Outpatient (AMB) | payer OTHER, SELFPAY ==
--- NOTE | 2024-07-04 10:11 | MHC.PC.OV ---
Vital Signs 07/04/24 10:12 Height 5 ft Weight 162 lb BMI 31.6 BP 128/72 Blood Pressure Location Lt brachial Position Sitting Pulse 78 Pulse Source Pulse Oximeter Pulse Oximetry (%) 98 Oxygen Delivery Method Room Air Intake Visit Reasons: Right Knee Pain, ortho referral request Allergies No Known Allergies [No Known Allergies*] Allergy (Verified 07/04/24 10:12) Tobacco use date assessed: 04/03/24 Dental Screening Dental Screen Date: 04/03/24 HPI Right Knee Pain, ortho referral request HPI Details The patient is a 58-year-old female presenting with right knee strain. The patient reported twisting her knee which led to a sharp pain. She has been experiencing persistent swelling and pain in the knee, primarily in the back. Pain was exacerbated by movement and continued despite treatment with acetaminophen and use of an DEZ bandage. This issue developed approximately three weeks ago. There is a history of previous knee surgery following physical therapy and orthopedic consultation. Despite prior management, the patient still notes residual pain. Currently, she is experiencing difficulty in movement due to the pain. The patient also has a history of essential hypertension, gastroesophageal reflux disease, and anxiety disorder. Blood pressure readings have shown normal counts, though the patient has maintained mildly elevated white blood cell counts. The patient's essential hypertension is currently managed adequately. Her GERD is managed, and a routine mammogram is up to date as of July 2023. A recommended colonoscopy was previously declined. - Mammogram up to date (July 2023). - Recommendation for colonoscopy declined. - Blood pressure monitoring shows normal values. - Normal serum sodium levels and electrolytes. - Appropriate kidney function. - Normal blood sugar. - Elevated HDL cholesterol. - Normal levels of Vitamin D and folic acid. - Musculoskeletal: Reports knee pain and swelling. - Labs: Normal blood pressure and normal kidney function. - Labs: Elevated HDL and normal Vitamin D, folic acid levels. COUNTS INCLUDE 234 BEDS AT THE [facility] Medical History (Updated 06/17/24 @ 11:56 by Radha Morrell PA-C) Colonoscopy refused Vitamin D deficiency Medial meniscus tear GERD (gastroesophageal reflux disease) Hypertension Obesity (BMI 30-39.9) Scoliosis Fibroadenoma of breast Surgical History History of left knee surgery History of cholecystectomy History of removal of cyst Family History Father Myocardial infarction Past heart attack Mother Hypertension Glioma Maternal Uncle Stomach cancer Sister No problems noted. Brother No problems noted. Brother No problems noted. Daughter No problems noted. Daughter No problems noted. Daughter No problems noted. Social History Housing: House Alcohol intake: never Patient Tobacco Use Status: Never used Tobacco Tobacco use type: Cigarette e-Cigarette/Vaping Use: Never Used Second Hand Smoke Exposure: No service: No Current occupational status: unemployed Cognitive needs: No Hearing needs: No Vision needs: Yes Questionnaire PHQ-9 Over the last 2 weeks, how often have you been bothered by any of the following problems? 1. Little interest or pleasure in doing things: not at all 2. Feeling down, depressed, or hopeless: several days 3. Trouble falling or staying asleep, or sleeping too much: several days 4. Feeling tired or having little energy: not at all 5. Poor appetite or overeating: not at all 6. Feeling bad about yourself - or that you are a failure or have let yourself or your family down: not at all 7. Trouble concentrating on things, such as reading the newspaper or watching television: several days 8. Moving or speaking so slowly that other people could have noticed. Or the opposite - being so fidgety or restless that you have been moving around a lot more than usual: not at all 9. Thoughts that you would be better off or of hurting yourself in some way: not at all Total score: 3 Source: Developed by Drs. Jareth Morgan, Bhavna Guzmán, Jerrell Cornejo and colleagues, with an educational aj from [employer]. Thrive Questionnaire Date Thrive assessed: 03/27/24 I am a: Patient What is your living situation today?: I choose not to answer this question Within the past 12 months, did the food you bought not last and you didn't have the money to get more?: Never true Within the past 12 months, did you worry whether your food would run out before you got money to buy more?: Never true Do you have trouble paying for medicines?: No Do you have trouble getting transportation to medical appointments?: No Do you have trouble paying your heating and electricity bill?: No Do you have trouble taking care of your child, family member or friend?: No Do you have trouble with day-to-day activities such as bathing, preparing meals, shopping, managing finances, etc.?: No Are you currently unemployed and looking for a job?: Yes Are you interested in more education?: No Please select the resources that you would like help with: None Currently or been in a relationship where the following occur: No concerns reported THRIVE Score: 0 SAMEER-7 AMB Questionnaire SAMEER-7 Date SAMEER - 7 assessed: 04/03/24 Source: Developed by Drs. Jareth Morgan, Bhavna Guzmán, Jerrell Cornejo and colleagues, with an educational aj from [employer]. Physical exam (Primary Care) Vital Signs: Last Vital Signs Pulse 78 07/04/24 10:12 BP 128/72 07/04/24 10:12 Pulse Ox 98 07/04/24 10:12 Oxygen Delivery Method Room Air 07/04/24 10:12 BMI result Body Mass Index 31.6 Tobacco/Smoking Status: Tobacco use Status Tobacco use date assessed 04/03/24 07/04/24 10:20 Patient Tobacco Use Status Never used Tobacco 07/04/24 10:20 Tobacco use type Cigarette 07/04/24 10:20 e-Cigarette/Vaping Use Never Used 07/04/24 10:20 PHQ-9: PHQ-9 Score PHQ-9: Total score 3 07/04/24 10:20 Thrive Assessment: Date of Thrive Assessment Date Thrive assessed 03/27/24 07/04/24 10:20 Currently or been in a relationship where the following occur: No concerns reported Const General: alert; No acute distress Eyes Conjunctivae: conjunctivae normal Resp Auscultation: clear to auscultation bilaterally Cardio Rate: regular rate Rhythm: regular rhythm GI Inspection: Yes normal to inspection Extrem General: Yes normal to inspection and No edema Coding Level of Care Code Est Pt Level 4 (66058) Diagnoses Obesity (BMI 30-39.9) E66.9 Essential hypertension I10 Hypertension type: primary hypertension Gastroesophageal reflux disease without esophagitis K21.9 Esophagitis presence: without esophagitis Generalized anxiety disorder F41.1 Strain of right knee, initial encounter S86.918H Encounter type: initial encounter Colon cancer screening Z12.11 Assessment & Plan Assessment & Plan (1) Obesity (BMI 30-39.9): Code(s): E66.9 - Obesity, unspecified Category: Medical Plan: Diet and exercise (2) Hypertension: Code(s): I10 - Essential (primary) hypertension Category: Medical Qualifiers: Hypertension type: primary hypertension Qualified Code(s): I10 - Essential (primary) hypertension Plan: Continue with blood pressure medication. Decrease salt intake and exercise on amlodipine 10 mg once a day (3) GERD (gastroesophageal reflux disease): Code(s): K21.9 - Gastro-esophageal reflux disease without esophagitis Category: Medical Qualifiers: Esophagitis presence: without esophagitis Qualified Code(s): K21.9 - Gastro-esophageal reflux disease without esophagitis Plan: Avoid the foods that causes that usually spicy foods, tomato products, juices, coffee, soda and foods that your sensitive to. After eating do not lie down, allow 3-4 hours before in lie down. And keep the head of bed above 30 degrees to avoid the acid from going up. (4) Generalized anxiety disorder: Comment: THEMA Q week Code(s): F41.1 - Generalized anxiety disorder Category: Medical Plan: Continue with counseling and therapy on Lexapro 5 mg once a day (5) Strain of right knee: Comment: Given her history coupled with her examination no further imaging is warranted at this time. Patient will be provided an Dez bandage for compression and stabilization. Code(s): S86.911A - Strain of unspecified muscle(s) and tendon(s) at lower leg level, right leg, initial encounter Category: Medical Qualifiers: Encounter type: initial encounter Qualified Code(s): S86.911A - Strain of unspecified muscle(s) and tendon(s) at lower leg level, right leg, initial encounter Plan: Discussed about anti-inflammatory and being that it has been there for 3 weeks and the pain continues to be there advised x-ray of the knee. Patient was told about Orthopedics but declined to have this done. Patient is advised physical therapy. (6) Colon cancer screening: Code(s): Z12.11 - Encounter for screening for malignant neoplasm of colon Category: Medical Plan: Patient does have a schedule with the [facility]np next year. Plan - Right Knee Strain: Recommend continuation of physical therapy to improve function and avoid surgery. Monitor for need of orthopedic evaluation if symptoms do not improve. - Essential Hypertension: Continue monitoring blood pressure; current management appears effective. - Gastroesophageal Reflux Disease: Continue current management. - Anxiety Disorder: Manage according to established plan. - Obesity: Consider lifestyle modifications including diet and exercise to aid weight management. I discussed the ongoing knee issues with the patient, emphasizing the importance of continued physical therapy as a primary approach to manage her knee strain. We reviewed the benefits of therapy and agreed to hold off on further surgical interventions for now. I clarified the role of x-rays in current management, noting that they are not warranted unless the condition worsens or does not improve with therapy. Management of chronic conditions such as hypertension and GERD was also reviewed, and the current regimen appears effective. I advised on lifestyle changes to address obesity and improve overall health status. - Continue with physical therapy for knee rehabilitation. - Monitor knee swelling and pain; report any worsening. - Adhere to prescribed medication for hypertension and GERD. - Pursue lifestyle modifications for weight management. - Follow up for routine health checks and screenings as recommended. Orders: Orders XR knee RT 1V Today S86.911A - Strain of unspecified muscle(s) and tendon(s) at lower leg level, right leg, initial encounter PT Evaluation and Treatment Today S86.911A - Strain of unspecified muscle(s) and tendon(s) at lower leg level, right leg, initial encounter
[2024-07-04 10:12] VITALS: BP 128/72; PULSE 78; O2SAT 98; BMI 31.6
== END 2024-07-04 10:49 | disposition home or self-care (01) ==
PROVIDERS: PCP Internal Medicine; Visit Provider Internal Medicine
DX: I10 Essential (primary) hypertension (principal); E66.9 Obesity, unspecified; Z68.31 Body mass index [BMI] 31.0-31.9, adult; K21.9 Gastro-esophageal reflux disease without esophagitis; F41.1 Generalized anxiety disorder; S86.911A Strain of unspecified muscle(s) and tendon(s) at lower leg level, right leg, initial encounter; Z12.11 Encounter for screening for malignant neoplasm of colon

== ENCOUNTER 2024-08-11 09:52 | Outpatient (AMB) | payer OTHER, SELFPAY ==
--- NOTE | 2024-08-11 10:16 | A.OFFVIS_ITS ---
Vital Signs 08/11/24 10:19 Height 5 ft Weight 160 lb BMI 31.2 BP 116/66 Blood Pressure Location Lt brachial Position Sitting Pulse 84 Intake Visit Reasons: Colonoscopy Screening Intake Note: Patient new consult 2nd pre Colonoscopy. Patient 1st colonoscopy was at [facility] 9 yeaars ago and she have some polyps. Branch Coordinator Required: No Accompanied by: Self / Same As Patient Allergies No Known Allergies [No Known Allergies*] Allergy (Verified 08/11/24 10:16) HPI HPI Colonoscopy Screening: Details: 59-year-old female with past medical history of anxiety, GERD, hypertension is here today for pre colonoscopy screening.? Patient was sent to us by her PCP.? Patient reports that her last colonoscopy was 9 years ago at [place]. Patient was told that she had polyps and needs to return for colorectal screening in 5 years..? Patient denies any gastrointestinal symptoms in the past or at present.? Denies any personal or family history of gastrointestinal disease, colon polyps, or CRC.? Denies history of difficulty with sedation or anesthesia in the past.? Negative for history of sleep apnea.? Denies any history of cardiac, renal, pulmonary, or hepatic disease.?? No history of infectious? diseases like hepatitis A, B, C, HIV or tuberculosis.? Patient is not on any anticoagulation [facility] Medical History (Updated 06/17/24 @ 11:56 by Radha Morrell PA-C) Colonoscopy refused Vitamin D deficiency Medial meniscus tear GERD (gastroesophageal reflux disease) Hypertension Obesity (BMI 30-39.9) Scoliosis Fibroadenoma of breast Surgical History History of left knee surgery History of cholecystectomy History of removal of cyst Family History Father Myocardial infarction Past heart attack Mother Hypertension Glioma Maternal Uncle Stomach cancer Sister No problems noted. Brother No problems noted. Brother No problems noted. Daughter No problems noted. Daughter No problems noted. Daughter No problems noted. Social History Housing: House Alcohol intake: never Patient Tobacco Use Status: Never used Tobacco Tobacco use type: Cigarette e-Cigarette/Vaping Use: Never Used Second Hand Smoke Exposure: No service: No Current occupational status: unemployed Cognitive needs: No Hearing needs: No Vision needs: Yes Review of Systems Const Denies weight gain and Denies weight loss ENT Reports no additional complaints, Denies dysphagia and Denies odynophagia Card Reports no additional complaints Resp Reports no additional complaints GI Denies abdominal pain, Denies belching, Denies melena, Denies bloating, Denies change in bowel habits, Denies dysphagia, Denies excessive flatus, Denies dyspepsia, Denies heartburn, Denies diarrhea, Denies loose stools, Denies nausea, Denies odynophagia and Denies vomiting Musc Reports no additional complaints Neuro Reports no additional complaints Psych Reports no additional complaints Endo Reports no additional complaints Physical Exam Vital Signs: Last Vital Signs Pulse 84 08/11/24 10:19 BP 116/66 08/11/24 10:19 BMI result Body Mass Index 31.2 Const General: healthy appearing and no acute distress Nutritional Appearance: obese Orientation/consciousness: patient oriented x3 Resp Effort & Inspection: normal respiratory effort, able to speak in complete sente nces, no tracheal deviation and symmetric chest movement Auscultation: clear to auscultation bilaterally Cardio Rate: regular rate GI Inspection: Yes normal to inspection, No distended and Yes obesity Palpation (GI): Soft to palpation, not firm, nontender and No hepatosplenomegaly present Auscultation: normal bowel sounds General: Yes no CVA tenderness Back/Spine/Pelvis Back: no CVA tenderness Skin General skin exam: elasticity normal, turgor normal and dry skin Neuro General: patient oriented x3 Psych Appearance: grossly normal Mental Status: mental status grossly normal Assessment & Plan Assessment & Plan (1) Colon cancer screening: Code(s): Z12.11 - Encounter for screening for malignant neoplasm of colon Category: Medical Plan Patient denies any GI, cardiac or respiratory symptoms.? Denies any issues with anesthesia in the past.? Denies any history of sleep apnea.? No history infectious diseases in the past or present.? Not on any anticoagulation therapy.? No family or personal history of colon cancer. History of polyps on colonoscopy 9 years ago. Recall was supposed to be 5 years.? Patient denies melena, hematochezia, unintentional weight loss or ribbon like stools.? Discussed at length the pre-procedure,? prep, diet & medications as well as what to expect prior, during and after the procedure.?? Stressed the importance of good bowel prep.? Recommended the use of Vaseline or Calmoseptine OTC & baby wipes with bowel movements to promote comfort.? ?Patient verbalizes understanding and agrees to plan of care.? She was given the opportunity to ask questions and all questions answered.? We will see her after the procedure.? Medications: New bisacodyl (Dulcolax (bisacodyl)) take 4 tabs at noon the day before your colonoscopy 20 mg (4 x 5 mg) PO ONCE 4 tabs 0RF 1 day Z12.11 - Encounter for screening for malignant neoplasm of colon polyethylene glycol 3350 (Miralax) As directed by gastroenterology department at [facility] 238 grams PO ONCE 238 grams 0RF Z12.11 - Encounter for screening for malignant neoplasm of colon Coding Level of Care Code New Pt Level 3 (88102) Diagnoses Colon cancer screening Z12.11 Time Spent (min) 40 Comment 30 minutes spent with patient and additional 10 minutes spent reviewing her records
[2024-08-11 10:19] VITALS: BP 116/66; PULSE 84; BMI 31.2
== END 2024-08-11 10:59 | disposition home or self-care (01) ==
PROVIDERS: PCP Internal Medicine; Visit Provider Nurse Practitioner Family
DX: Z01.818 Encounter for other preprocedural examination (principal); Z12.11 Encounter for screening for malignant neoplasm of colon; Z86.0100 Personal history of colon polyps, unspecified
CPT/HCPCS: 99202

== ENCOUNTER → 2024-08-11 09:52 | Outpatient (BNVA) | payer OTHER, SELFPAY | PROVIDERS: PCP Internal Medicine; Visit Provider Nurse Practitioner Family | DX: Z12.11 Encounter for screening for malignant neoplasm of colon (principal) | CPT/HCPCS: 99202 ==

== ENCOUNTER 2024-08-22 12:27 | Outpatient (REF) | payer OTHER, SELFPAY | END 2024-08-22 12:28 | disposition home or self-care (01) | LOC: HO.MAMMO 12:27 | PROVIDERS: PCP Internal Medicine; Visit Provider Internal Medicine | DX: Z12.31 Encounter for screening mammogram for malignant neoplasm of breast (principal) | CPT/HCPCS: 77063; 77067 ==

== ENCOUNTER → 2024-08-22 12:30 | Outpatient (BNV) | payer OTHER, SELFPAY | PROVIDERS: PCP Internal Medicine; Visit Provider Internal Medicine | DX: Z12.31 Encounter for screening mammogram for malignant neoplasm of breast (principal) | CPT/HCPCS: 77063; 77067 ==

== ENCOUNTER 2024-09-08 12:39 | Outpatient (RCR) | payer OTHER, SELFPAY ==
--- NOTE | 2024-08-14 14:19 | MHC.PT.EP ---
[facility] [place] [facility] [place] [facility] [place] Office [address] Nolan Mcpherson [address] [phone] F: [phone] F: [phone] F: [phone] F: [phone] Physical Therapy Plan of Care Date of Evaluation: 08/14/24 Date of Surgery: Diagnosis: RIGHT KNEE STRAIN Assessment: 59 YO FEMALE REF TO PT FOR Rt KNEE STRAIN SUSTAINED WHILE ASCENDING STAIRS AT HOME ON 06/10/25. SHE RESIDES ALONE- CURRENTLY IS NOT USING AN ASST DEVICE- SHE HAS HYPOMOBILITY Rt LATERAL PATELLA, END ROM DEFICITS Rt KNEE, MILD STRENGTH DEFICITS IN PROX LEs, AND DECR ROCAEL TO REG FUNCT MOB. (-) INSTABILITY Rt KNEE, POSTERIOR RIGHT KNEE PRESSURE - SHE IS MOTIVATED FOR PT TO ADDRESS THE ABOVE FINDINGS AND MAXIMIZE FUNCT INDEP Frequency and Duration: The patient will be seen 2 x WK x 4 WKS Short Term Goals: *DECR Rt KNEE PAIN TO 2-3/10 *INITIATE HEP *IMPROVE AROM Rt KNEE/ HIP *IMPROVE FUNCT ACTIVITY ROCAEL Halfway Goals: *Pt WILL IMPROVE LUMBOPELVIC/ Rt LE STRENGTH BY 1 GRADE *Pt DEMON Rt KNEE AROM 0* TO 120* *Pt RESUME AT LEAST PLOF EVIDENT W IMPROVED LEFI SCORE (AT EVAL 35/80 ) *Pt INDEP W PROGR HEP AND SELF-SX MGMT TECHN Treatment Plan: Modalities to reduce pain, spasms and effusion. Manual therapy to restore motion and function. Therapeutic exercise to improve strength and flexibility. Neuromuscular re-education for posture and balance. Therapeutic activities to return to functional activities of daily living. Electronically signed by: MIKEY MAS,PT Please sign and return to therapist. Thank you for your referral.
--- NOTE | 2024-11-03 07:22 | MHC.PT.DC ---
[facility] [place] Office [place] [facility] [place] Office [address] Nolan Mcpherson 140 [facility] [phone] F: [phone] F: [phone] F: [phone] F: [phone] Physical Therapy Discharge Report Diagnosis: RIGHT KNEE STRAIN Date of Surgery: Date of Evaluation: 08/14/24 Date of Discharge: 11/03/24 Treatments to Date: 5 Cancellations to Date: 3 No Shows to Date: Discharge Status: Achieved Goals Improved Function Independent with HEP Discharge Summary: JABIER HAS PROGRESSED NICELY IN PT- SHE HAS MET THE MAJORITY OF HER PT GOALS- SHE REMAINS MOTIVATED W HER HEP AND SHE FELT READY FOR D/C FROM PT. Electronically signed by: MIKEY MAS,PT Please sign and return to therapist. Thank you for your referral.
== END 2024-11-03 07:23 | disposition home or self-care (01) ==
LOC: HO.PT 12:39
PROVIDERS: PCP Internal Medicine; Visit Provider Internal Medicine
DX: S86.911D Strain of unspecified muscle(s) and tendon(s) at lower leg level, right leg, subsequent encounter (principal)
CPT/HCPCS: 97110; 97112; 97140; 97162

== ENCOUNTER 2024-11-04 07:09 | Day surgery (SDC) | payer OTHER, SELFPAY ==
[2024-10-31 12:34] VITALS: BMI 31.2
--- NOTE | 2024-11-03 12:30 | HO.ANESPROP2 ---
HPI - Anesthesia Eval Consult details Narrative: 59yo F for Colonoscopy PMFSH Active Problems Active Problems: All Active Problems Strain of right knee (Acute) Constipation (Acute) Hypersomnia (Acute) Cervical cancer screening (Acute) Colon cancer screening (Acute) Generalized anxiety disorder (Acute) Vitamin B 12 deficiency (Acute) Annual physical exam (Acute) Excessive thirst (Acute) Vitamin D deficiency (Acute) GERD (gastroesophageal reflux disease) (Acute) Hypertension (Acute) Obesity (BMI 30-39.9) (Acute) Past Medical History Medical History (Updated 06/17/24 @ 11:56 by Radha Morrell PA-C) Colonoscopy refused Vitamin D deficiency Medial meniscus tear GERD (gastroesophageal reflux disease) Hypertension Obesity (BMI 30-39.9) Scoliosis Fibroadenoma of breast Family History Family History Father Myocardial infarction Past heart attack Mother Hypertension Glioma Maternal Uncle Stomach cancer Sister No problems noted. Brother No problems noted. Brother No problems noted. Daughter No problems noted. Daughter No problems noted. Daughter No problems noted. Surgical History Surgical History (Updated 10/31/24 @ 12:33 by Megan Charles RN) Hx of colonoscopy (~2015) History of left knee surgery History of cholecystectomy History of removal of cyst Social History Social History Housing: House Alcohol intake: never Patient Tobacco Use Status: Never used Tobacco Tobacco use type: Cigarette e-Cigarette/Vaping Use: Never Used Second Hand Smoke Exposure: No service: No Current occupational status: unemployed Cognitive needs: No Hearing needs: No Vision needs: Yes Meds Allergies Allergy/AdvReac Type Severity Reaction Status Date / Time No Known Allergies Allergy Verified 08/11/24 10:16 [No Known Allergies*] Home Medications ?Medication ?Instructions ?Recorded ?Confirmed ?Last Taken ?Type escitalopram oxalate 5 mg tablet 5 mg PO DAILY 04/03/24 04/03/24 Unknown History Exam Height,Weight and Vital Signs: Height 5 ft Weight 72.575 kg Assessment and Plan Assessment Anesthesia Assessment: Chart Reviewed
[2024-11-04 07:15] VITALS: BMI 30.1
[2024-11-04 07:31] VITALS: BP 120/76; PULSE 97; RESP 15; TEMP 36.9; O2SAT 97
[2024-11-04] MEDS: Lactated Ringers 1,000 ML 100 ML IVCONT (07:39)
--- NOTE | 2024-11-04 07:42 | P.CONAN_ITS ---
[facility] Active Problems Active Problems: All Active Problems Strain of right knee (Acute) Constipation (Acute) Hypersomnia (Acute) Cervical cancer screening (Acute) Colon cancer screening (Acute) Generalized anxiety disorder (Acute) Vitamin B 12 deficiency (Acute) Annual physical exam (Acute) Excessive thirst (Acute) Vitamin D deficiency (Acute) GERD (gastroesophageal reflux disease) (Acute) Hypertension (Acute) Obesity (BMI 30-39.9) (Acute) Past Medical History Medical History Depression Colonoscopy refused Vitamin D deficiency Medial meniscus tear GERD (gastroesophageal reflux disease) Hypertension Obesity (BMI 30-39.9) Scoliosis Fibroadenoma of breast Functional capacity: independent ambulation Patient : No Family History Family History Father Myocardial infarction Past heart attack Mother Hypertension Glioma Maternal Uncle Stomach cancer Sister No problems noted. Brother No problems noted. Brother No problems noted. Daughter No problems noted. Daughter No problems noted. Daughter No problems noted. Family history of problems with anesthesia: No Surgical History Surgical History Hx of colonoscopy (~2015) History of left knee surgery History of cholecystectomy History of removal of cyst History of Problems with Anesthesia: No Social History Social History Housing: House Alcohol intake: never Patient Tobacco Use Status: Never used Tobacco Tobacco use type: Cigarette e-Cigarette/Vaping Use: Never Used Second Hand Smoke Exposure: No Use of substances other than those prescribed or required for medical reasons: No Are you DNR?: No Advance Directives: No Advance Directives Information Provided: Yes service: No Current occupational status: unemployed Cognitive needs: No Hearing needs: No Vision needs: Yes Meds Allergies Allergy/AdvReac Type Severity Reaction Status Date / Time No Known Allergies Allergy Verified 11/04/24 07:27 [No Known Allergies*] Active Medications: Current Medications Lactated Ringer's (Lr) 1,000 mls @ 100 mls/hr IVCONT .Q10H NITESH Last Admin: 11/04/24 07:39 Dose: 100 mls/hr Home Medications ?Medication ?Instructions ?Recorded ?Confirmed ?Last Taken ?Type escitalopram oxalate 5 mg tablet 5 mg PO DAILY 04/03/24 11/04/24 Unknown History Exam Height,Weight and Vital Signs: Height 5 ft Weight 69.853 kg Last Vital Signs Temp 98.5 F 11/04/24 07:31 Pulse 97 11/04/24 07:31 Resp 15 11/04/24 07:31 BP 120/76 11/04/24 07:31 Pulse Ox 97 11/04/24 07:31 O2 Del Method Room Air 11/04/24 07:31 Airway Mallampati Class: II TM Dist: >3cm Neck ROM: Full Heart: RRR Lungs: CTA Assessment and Plan Assessment Anesthesia Assessment: Anesthesia Plan Discussed, Smoking Cess. Discussed and Chart Reviewed Final Anesthetic Review Family History of Problems with Anesthesia: No History of Problems with Anesthesia: No NPO: Yes ASA Class: II Final Preanesthetic Review: Meds/Allgs Chart Reviewed, Consent Obtained/Reviewed and Anes Risks/Benef Reviewed Patient Risk: Low Procedure Risk: Low Anesthetic Plan Anesthetic Plan: MAC: Disposition: Standard PACU
--- NOTE | 2024-11-04 07:53 | MHC.SHP ---
Pre-Procedural Eval Section A - 24 Hr Update-Section A only Date of Service: 11/04/24 Section B - Complete if H&P > 30 days Chief Complaint: Hx of polyps Details of Present Illness: PMH: Vitamin D deficiency Medial meniscus tear GERD (gastroesophageal reflux disease) Hypertension Obesity (BMI 30-39.9) Scoliosis Fibroadenoma of breast Surgical History History of left knee surgery History of cholecystectomy History of removal of cyst Present Medications: see Short Stay Collaborative assessment Allergies: Allergies Allergy/AdvReac Type Severity Reaction Status Date / Time No Known Allergies Allergy Verified 11/04/24 07:27 [No Known Allergies*] Review of Systems Review of Systems Comment: 10 point ROS negative Exam Surgical H&P Exam: Normal: HEENT, Normal: Heart, Normal: Lungs, Normal: Extremities, Normal: Abdomen, Normal: Skin and Normal: Neurological Plan Diagnosis/Plan: Unchanged I have reviewed the history and physical and performed a pertinent physical examination on my patient. No changes have occurred unless specified. Time Spent With Patient Time: Total time managing care of this patient today ____ minutes.
[2024-11-04 09:15] VITALS: BP 106/66; PULSE 82; RESP 21; TEMP 37.1
--- NOTE | 2024-11-04 09:28 | P.OPN-COLO_ITS ---
Colonoscopy Operative Note Operative Note Date of Service: 11/04/24 Narrative: Procedure: Colonoscopy Indication: Personal history of polyps Endoscopist: Ling May MD Anesthesia Provider: Dr Nicole Tracey Anesthesia type: MAC Instrument: Olympus [id number]-[id number] Consent: Indication, risks vs benefits, and alternatives were discussed with the patient who gave written informed consent to proceed. EKG, pulse, pulse oximetry and blood pressure were monitored throughout the procedure. Please see anesthesia flowsheet. Procedure: The patient was brought to the procedure room and placed in the left lateral decubitus position. IV medications were administered by the anesthesia provider in attendance. A digital rectal exam was performed which was normal. A distal attachment cap was affixed to the tip of the colonoscope which was then inserted through the anus and advanced through the colon to the cecum at 75 cm,and terminal ileum. Appendiceal orifice and ileocecal valve were identified. Mucosa was carefully examined under high definition white light as the instrument was slowly withdrawn in a retrograde panoramic fashion. Retroflexion was performed in rectum. The procedure was not difficult. There were no immediate obvious complications. The quality of the prep was BBPS: 2+3+3 = adequate Withdrawal time 7 minutes. Limitations: No limitations. Findings: Mucosa: Normal to cecum and terminal ileum. Protruding lesions: * Medium internal hemorrhoids without stigmata of recent bleeding. Excavated lesions: * Mild diverticulosis of sigmoid colon. Impression: 1. Normal colon mucosa 2. Diverticulosis 3. Internal hemorrhoids Recommendations: - Repeat colonoscopy for asymptomatic colorectal ca screening in 10 years.
[2024-11-04 09:30] VITALS: BP 118/69; PULSE 72; RESP 18; TEMP 36.6; O2SAT 98
--- NOTE | 2024-11-04 10:57 | HO.POSTANES ---
Post Anesthesia Evaluation Post Anesthesia Evaluation Date of Service: 11/04/24 Vital Signs: Vital Signs Temp Pulse Resp BP Pulse Ox O2 Del Method O2 Flow Rate 11/04/24 09:30 97.8 F 72 18 118/69 98 Room Air 11/04/24 09:15 98.8 F 82 21 H 106/66 97 11/04/24 07:31 98.5 F 97 15 120/76 97 Room Air Anesthesia: Monitored Mental Status: Awake Pain Control: Satisfactory Nausea/Vomiting: None Hydration: Adequate Anesthesia-Related Issues: No Anes. Related Issues
== END 2024-11-04 10:36 | disposition home or self-care (01) ==
PROVIDERS: PCP Internal Medicine; Visit Provider Internal Medicine
PROC: 0DJD8ZZ Inspection of Lower Intestinal Tract, Via Natural or Artificial Opening Endoscopic (ICD-10-PCS; CPT 45378; principal; 2024-11-04 08:30)
DX: Z12.11 Encounter for screening for malignant neoplasm of colon (principal); K57.30 Diverticulosis of large intestine without perforation or abscess without bleeding; K64.8 Other hemorrhoids; Z86.0101 Personal history of adenomatous and serrated colon polyps; I10 Essential (primary) hypertension; K21.9 Gastro-esophageal reflux disease without esophagitis; E55.9 Vitamin D deficiency, unspecified; F41.9 Anxiety disorder, unspecified; E66.9 Obesity, unspecified; Z68.31 Body mass index [BMI] 31.0-31.9, adult; Z90.49 Acquired absence of other specified parts of digestive tract; Z79.899 Other long term (current) drug therapy
CPT/HCPCS: 45378; J2003; J2704

== ENCOUNTER → 2024-11-04 07:09 | Outpatient (BNV) | payer OTHER, SELFPAY | PROVIDERS: PCP Internal Medicine; Visit Provider Internal Medicine | DX: Z12.11 Encounter for screening for malignant neoplasm of colon (principal); Z86.0100 Personal history of colon polyps, unspecified; K57.30 Diverticulosis of large intestine without perforation or abscess without bleeding; K64.8 Other hemorrhoids | CPT/HCPCS: 45378 ==